=== PATIENT | female | born 1985 | race Caucasian/White ===

== ENCOUNTER 2016-05-25 08:11 | Emergency (ER) | payer MEDICAID ==
[~2016-05-25] VITALS: Ht 170.2 cm; Wt 115.9 kg
[~2016-05-25 08:11] MED LIST: CLARITIN-D 10 M1 T24 PO; FLEXERIL 1010 MG/TAB PO; IRON TABLETS325 MG PO; NAPROSYN500 MG PO; NEXPLANON68 MG; NORCO 325 MG-51 TAB PO; PRENATAL1 TA1 PO
[2016-05-25 08:28] VITALS: BP 129/72; PULSE 101; TEMP 97.6
[2016-05-25] MEDS ORDERED: AMOXICILLIN875 MG PO (08:41)
== END 2016-05-25 09:04 | disposition home or self-care (01) ==
LOC: COL.ER 08:11
DX: J32.0 Chronic maxillary sinusitis (principal)

== ENCOUNTER 2017-03-14 09:42 | Emergency (ER) | payer MEDICAID ==
[~2017-03-14] VITALS: Ht 170.2 cm; Wt 114.5 kg
[~2017-03-14 09:42] MED LIST changes: +AMOXICILLIN875 MG PO
[2017-03-14 10:40] VITALS: BP 133/75; PULSE 84; TEMP 98.1
== END 2017-03-14 10:40 | disposition home or self-care (01) ==
LOC: COL.ER 09:42
DX: S16.1XXA Strain of muscle, fascia and tendon at neck level, initial encounter (principal); G89.29 Other chronic pain; X50.0XXA Overexertion from strenuous movement or load, initial encounter

== ENCOUNTER → 2018-12-25 | Outpatient (CLI) | payer MEDICAID | LOC: COL.RAD 12:03 | DX: M47.22 Other spondylosis with radiculopathy, cervical region (principal) ==

== ENCOUNTER → 2019-01-22 | Outpatient (CLI) | payer MEDICAID | LOC: MHCPAIN 13:14 | DX: G89.29 Other chronic pain (principal); M54.12 Radiculopathy, cervical region; M47.812 Spondylosis without myelopathy or radiculopathy, cervical region; R51 Headache | CPT/HCPCS: G0463 ==